=== PATIENT | female | born 1945 | race Caucasian/White ===

== ENCOUNTER 2016-11-04 17:08 | Emergency (ER) | payer MEDICARE, BC ==
[~2016-11-04] VITALS: Ht 162.6 cm; Wt 70.0 kg
[~2016-11-04 17:08] MED LIST: ASPIRIN ADULT L81 M2 PO; BACTRIM DS1 TAB PO; CALTRATE PO; DEXILANT60 MG PO; FLOVENT IN; FOLIC ACID1 MG PO; HYDROXYCHLOR200 M1 PO; LEVOTHYROXIN125 MCG PO; LIPITOR40 M1 PO; LOSARTAN POT50 MG PO; LYRICA100 MG PO; METRONIDAZOL500 MG PO; MULT VITAMI1 PO; NORCO1 TA1 PO; PREDNISONE10 MG PO; PROBIOTIC FORMU1 CAP PO; RECLAST5 MG/100 M IV; STOOL SOFTENER100 MG PO; SYNTHROID25 MCG PO; SYNTHROID50 MCG PO; TOVIAZ8 MG PO; TRAMADOL HCL50 MG PO; VITAMIN D1000 UNIT PO; VITAMIN E400 UNIT PO; VOLTAREN 1% TOP
[2016-11-04 17:38] LABS: HEMATOCRIT 34.5 % (37.0-47.0); HEMOGLOBIN 11.3 g/dl (12.0-16.0); IMMATURE GRANULOCYTES 0.4 % (0.0-1.0); MEAN CELL VOLUME 98.6 fL CALC (80.0-100.0); MEAN CORPUSCULAR HGB 32.3 pG CALC (26.0-32.0); MEAN CORPUSCULAR HGB CONC 32.8 g/L CALC (32.0-36.0); NEUT# 10.34 thou/uL (2.00-7.15); RED BLOOD COUNT 3.5 mill/uL (4.20-5.60); RED CELL DISTRI WIDTH 14.2 % (11.5-15.5)
[2016-11-04 17:49] LABS: ALBUMIN 4.3 g/dL (3.2-5.0); ALKALINE PHOSPHATASE 61 u/l (38-126); AMYLASE 31 u/l (30-110); ANION GAP 21 (6-22 (CALC)); BILIRUBIN, TOTAL 0.4 mg/dL (0.0-1.4); BUN 4 mg/dL (8-23); BUN/CREATININE RATIO 8 (12-20 (CALC)); CALCIUM 9.4 mg/dL (8.4-10.2); CARBON DIOXIDE 20 mmol/l (22-30); CHLORIDE 104 mmol/l (95-108); CREATININE 0.5 mg/dL (0.5-1.0); GFR > 60 ML/MIN (>=60 (CALC)); GFR FOR AFR.AMER. > 60 ML/MIN (>=60 (CALC)); GLUCOSE 88 mg/dL (82-115); LIPASE 81 u/l (23-300); POTASSIUM 3.4 mmol/l (3.5-5.1); SGOT/AST 48 u/l (9-36); SGPT/ALT 39 u/l (11-66); SODIUM 141 mmol/l (137-146); TOTAL PROTEIN 7.6 g/dL (6.3-8.2)
[2016-11-04] MEDS ORDERED: FLOVENT DI50 MCG/BLI IN (18:23)
[2016-11-04] MEDS ORDERED: VITAMIN D31000 UNI1 PO (18:29)
[2016-11-04 21:30] VITALS: BP 184/88
== END 2016-11-04 21:30 ==
LOC: ED 17:08
PROVIDERS: Emergency Medicine
DX: R10.31 Right lower quadrant pain (principal); R10.32 Left lower quadrant pain; K57.20 Diverticulitis of large intestine with perforation and abscess without bleeding; Z90.49 Acquired absence of other specified parts of digestive tract; R50.9 Fever, unspecified

== ENCOUNTER 2016-11-13 06:15 | Emergency (ER) | payer MEDICARE, BC ==
[~2016-11-13] VITALS: Ht 162.6 cm; Wt 70.9 kg
[~2016-11-13 06:15] MED LIST changes: +FLOVENT DI50 MCG/BLI IN; +VITAMIN D31000 UNI1 PO
[2016-11-13 07:02] LABS: HEMATOCRIT 41.3 % (37.0-47.0); HEMOGLOBIN 13.4 g/dl (12.0-16.0); IMMATURE GRANULOCYTES 0.4 % (0.0-1.0); MEAN CELL VOLUME 98.6 fL CALC (80.0-100.0); MEAN CORPUSCULAR HGB CONC 32.4 g/L CALC (32.0-36.0); NEUT# 3.34 thou/uL (2.00-7.15); RED BLOOD COUNT 4.19 mill/uL (4.20-5.60); RED CELL DISTRI WIDTH 14.7 % (11.5-15.5)
[2016-11-13 07:21] LABS: ALBUMIN 4.5 g/dL (3.2-5.0); ALKALINE PHOSPHATASE 52 u/l (38-126); AMYLASE 42 u/l (30-110); ANION GAP 21 (6-22 (CALC)); BILIRUBIN, TOTAL 0.4 mg/dL (0.0-1.4); BUN 10 mg/dL (8-23); BUN/CREATININE RATIO 18 (12-20 (CALC)); CALCIUM 9.8 mg/dL (8.4-10.2); CARBON DIOXIDE 24 mmol/l (22-30); CHLORIDE 107 mmol/l (95-108); CREATININE 0.5 mg/dL (0.5-1.0); GFR > 60 ML/MIN (>=60 (CALC)); GFR FOR AFR.AMER. > 60 ML/MIN (>=60 (CALC)); GLUCOSE 93 mg/dL (82-115); LIPASE 159 u/l (23-300); POTASSIUM 4.3 mmol/l (3.5-5.1); SGOT/AST 74 u/l (9-36); SGPT/ALT 57 u/l (11-66); SODIUM 148 mmol/l (137-146); TOTAL PROTEIN 7.7 g/dL (6.3-8.2)
[2016-11-13] MEDS ORDERED: MIRALAX3350 N1 PO (08:49)
[2016-11-13] MEDS ORDERED: COLACE100 MG PO (08:49)
[2016-11-13 09:41] LABS: URINE BILIRUBIN - DIPSTICK NEGATIVE (NEGATIVE); URINE BLOOD DIPSTICK NEGATIVE (NEGATIVE); URINE CLARITY CLEAR; URINE COLOR YELLOW; URINE GLUCOSE - DIPSTICK NEGATIVE (NEGATIVE); URINE KETONE NEGATIVE (NEGATIVE); URINE LEUK ESTERASE NEGATIVE (NEGATIVE); URINE NITRITE - DIPSTICK NEGATIVE (Negative); URINE PROTEIN - DIPSTICK NEGATIVE (NEG-TRACE); URINE UROBILINOGEN - DIPSTICK 0.2 E.U./dL (0.2)
[2016-11-13 10:59] VITALS: BP 161/78
--- NOTE | 2016-11-18 10:05 | NUR ---
ED CULTURE PHARMACY MEDICATION FOLLOW-UP Patient was seen in ED on 11/13/16 Cultures were reviewed from: Blood Patient was discharged with Rx for:N/A C&S report came back with No Growth PLAN: Recommended: No Change Comment: CONSTIPATION WITH ABDOMINAL PAIN
== END 2016-11-13 12:20 ==
LOC: ED 06:15 → ED-I 09:55 → ED 12:20
PROVIDERS: Emergency Medicine
DX: R10.32 Left lower quadrant pain (principal); K59.00 Constipation, unspecified; Z98.0 Intestinal bypass and anastomosis status

== ENCOUNTER 2017-02-14 17:41 | Emergency (ER) | payer MEDICARE, BC ==
[~2017-02-14] VITALS: Ht 162.6 cm; Wt 74.0 kg
[~2017-02-14 17:41] MED LIST changes: +COLACE100 MG PO; +MIRALAX3350 N1 PO
[2017-02-14] MEDS ORDERED: PERCOCET 5/325M1 TAB PO (20:12)
[2017-02-14 20:19] VITALS: BP 121/69
== END 2017-02-14 20:19 | disposition home or self-care (01) ==
LOC: ED 17:41
DX: S20.212A Contusion of left front wall of thorax, initial encounter (principal); S80.02XA Contusion of left knee, initial encounter; S40.012A Contusion of left shoulder, initial encounter; W01.0XXA Fall on same level from slipping, tripping and stumbling without subsequent striking against object, initial encounter; Y93.K1 Activity, walking an animal; Y92.009 Unspecified place in unspecified non-institutional (private) residence as the place of occurrence of the external cause

== ENCOUNTER 2017-07-17 13:35 | Emergency (ER) | payer MEDICARE, BC ==
[~2017-07-17] VITALS: Ht 162.6 cm; Wt 76.8 kg
[~2017-07-17 13:35] MED LIST changes: +PERCOCET 5/325M1 TAB PO
[2017-07-17 14:45] LABS: HEMATOCRIT 33.8 % (37.0-47.0); HEMOGLOBIN 11.1 g/dl (12.0-16.0); IMMATURE GRANULOCYTES 0.5 % (0.0-1.0); MEAN CORPUSCULAR HGB 31.5 pG CALC (26.0-32.0); MEAN CORPUSCULAR HGB CONC 32.8 g/L CALC (32.0-36.0); NEUT# 7.67 thou/uL (2.00-7.15); RED BLOOD COUNT 3.52 mill/uL (4.20-5.60); RED CELL DISTRI WIDTH 15.1 % (11.5-15.5)
[2017-07-17 15:03] LABS: ALBUMIN 4.6 g/dL (3.2-5.0); ALKALINE PHOSPHATASE 79 u/l (38-126); AMYLASE < 30 u/l (30-110); ANION GAP 19 (6-22 (CALC)); BILIRUBIN, TOTAL 0.8 mg/dL (0.0-1.4); BUN 9 mg/dL (8-23); BUN/CREATININE RATIO 17 (12-20 (CALC)); CARBON DIOXIDE 26 mmol/l (22-30); CHLORIDE 102 mmol/l (95-108); CREATININE 0.5 mg/dL (0.5-1.0); GFR > 60 ML/MIN (>=60 (CALC)); GFR FOR AFR.AMER. > 60 ML/MIN (>=60 (CALC)); GLUCOSE 134 mg/dL (82-115); LIPASE 43 u/l (23-300); POTASSIUM 3.7 mmol/l (3.5-5.1); SGOT/AST 33 u/l (9-36); SGPT/ALT 49 u/l (11-66); SODIUM 143 mmol/l (137-146); TOTAL PROTEIN 7.2 g/dL (6.3-8.2)
[2017-07-17 23:00] VITALS: BP 124/64
== END 2017-07-17 23:00 | disposition short-term general hospital (02) ==
LOC: ED 13:35
PROVIDERS: Emergency Medicine
DX: K56.609 Unspecified intestinal obstruction, unspecified as to partial versus complete obstruction (principal); K91.89 Other postprocedural complications and disorders of digestive system; Z98.0 Intestinal bypass and anastomosis status; R10.9 Unspecified abdominal pain; Z87.19 Personal history of other diseases of the digestive system; K59.00 Constipation, unspecified; R94.31 Abnormal electrocardiogram [ECG] [EKG]

== ENCOUNTER 2017-08-02 18:00 | Emergency (ER) | payer MEDICARE, BC ==
[~2017-08-02] VITALS: Ht 162.6 cm; Wt 76.4 kg
[2017-08-02 19:46] LABS: HEMATOCRIT 39.9 % (37.0-47.0); HEMOGLOBIN 13.1 g/dl (12.0-16.0); IMMATURE GRANULOCYTES 0.4 % (0.0-1.0); MEAN CELL VOLUME 96.6 fL CALC (80.0-100.0); MEAN CORPUSCULAR HGB 31.7 pG CALC (26.0-32.0); MEAN CORPUSCULAR HGB CONC 32.8 g/L CALC (32.0-36.0); NEUT# 10.15 thou/uL (2.00-7.15); RED BLOOD COUNT 4.13 mill/uL (4.20-5.60); RED CELL DISTRI WIDTH 15.4 % (11.5-15.5)
[2017-08-02 20:03] LABS: ALBUMIN 5.3 g/dL (3.2-5.0); ALKALINE PHOSPHATASE 69 u/l (38-126); AMYLASE 50 u/l (30-110); ANION GAP 21 (6-22 (CALC)); BILIRUBIN, TOTAL 0.9 mg/dL (0.0-1.4); BUN 13 mg/dL (8-23); BUN/CREATININE RATIO 23 (12-20 (CALC)); CALCIUM 10.8 mg/dL (8.4-10.2); CARBON DIOXIDE 23 mmol/l (22-30); CHLORIDE 103 mmol/l (95-108); CREATININE 0.5 mg/dL (0.5-1.0); GFR > 60 ML/MIN (>=60 (CALC)); GFR FOR AFR.AMER. > 60 ML/MIN (>=60 (CALC)); GLUCOSE 113 mg/dL (82-115); LIPASE 68 u/l (23-300); SGOT/AST 41 u/l (9-36); SGPT/ALT 43 u/l (11-66); SODIUM 143 mmol/l (137-146); TOTAL PROTEIN 8.2 g/dL (6.3-8.2)
[2017-08-02 20:33] LABS: URINE BILIRUBIN - DIPSTICK NEGATIVE (NEGATIVE); URINE BLOOD DIPSTICK NEGATIVE (NEGATIVE); URINE COLOR YELLOW; URINE GLUCOSE - DIPSTICK NEGATIVE (NEGATIVE); URINE KETONE NEGATIVE (NEGATIVE); URINE LEUK ESTERASE NEGATIVE (NEGATIVE); URINE NITRITE - DIPSTICK NEGATIVE (Negative); URINE PROTEIN - DIPSTICK NEGATIVE (NEG-TRACE); URINE SPECIFIC GRAVITY 1.025; URINE UROBILINOGEN - DIPSTICK 0.2 E.U./dL (0.2)
[2017-08-02 20:49] LABS: URINE CLARITY CLEAR
[2017-08-03 00:02] VITALS: BP 175/88
== END 2017-08-03 00:16 | disposition home or self-care (01) ==
LOC: ED 18:00 → ED-I 22:04 → ED 08-03 00:16
PROVIDERS: Emergency Medicine
DX: R10.32 Left lower quadrant pain (principal); R10.31 Right lower quadrant pain; K59.00 Constipation, unspecified; Z98.0 Intestinal bypass and anastomosis status; R11.2 Nausea with vomiting, unspecified
CPT/HCPCS: Q9967

== ENCOUNTER 2017-09-17 13:49 | Emergency (ER) | payer MEDICARE, BC ==
[~2017-09-17] VITALS: Ht 162.6 cm; Wt 76.4 kg
[2017-09-17] MEDS ORDERED: MOTRIN400 MG PO (15:11)
[2017-09-17] MEDS ORDERED: HYDROCO/APAP1 TA9 PO (15:11)
[2017-09-17 15:23] VITALS: BP 123/53
== END 2017-09-17 15:44 | disposition home or self-care (01) ==
LOC: ED 13:49
PROC: 2W3CX1Z Immobilization of Right Lower Arm using Splint (ICD-10-PCS; principal; 2017-09-17)
DX: S52.501A Unspecified fracture of the lower end of right radius, initial encounter for closed fracture (principal); W01.0XXA Fall on same level from slipping, tripping and stumbling without subsequent striking against object, initial encounter; Y93.9 Activity, unspecified; Y92.009 Unspecified place in unspecified non-institutional (private) residence as the place of occurrence of the external cause; M25.531 Pain in right wrist; I10 Essential (primary) hypertension

== ENCOUNTER 2018-09-02 06:57 | Day surgery (SDC) | payer MEDICARE, BC ==
[~2018-09-02] VITALS: Ht 162.6 cm; Wt 77.6 kg
[~2018-09-02 06:57] MED LIST changes: +B1 HIGH POTENC100 MG; +HYDROCO/APAP1 TA9 PO; +MONTELUKAST SOD10 MG PO; +MOTRIN400 MG PO
[2018-09-02 09:48] VITALS: BP 179/85
[2018-09-02] MEDS ORDERED: CARAFATE1 GM PO (09:58)
== END 2018-09-02 10:00 | disposition home or self-care (01) ==
LOC: ORM 06:57
PROVIDERS: ATTEND Surgery
PROC: 0DJ08ZZ Inspection of Upper Intestinal Tract, Via Natural or Artificial Opening Endoscopic (ICD-10-PCS; principal; 2018-09-02)
DX: K21.0 Gastro-esophageal reflux disease with esophagitis (principal); K29.40 Chronic atrophic gastritis without bleeding; I10 Essential (primary) hypertension; E78.5 Hyperlipidemia, unspecified; M06.9 Rheumatoid arthritis, unspecified

== ENCOUNTER → 2018-09-04 | Outpatient (REF) | payer MEDICARE, BC ==
[~2018-09-04] MED LIST changes: +CARAFATE1 GM PO
[2018-09-04 09:06] LABS: HEMATOCRIT 36.6 % (37.0-47.0); HEMOGLOBIN 11.8 g/dl (12.0-16.0); IMMATURE GRANULOCYTES 0.6 % (0.0-5.0); MEAN CELL VOLUME 103.4 fL CALC (80.0-100.0); MEAN CORPUSCULAR HGB 33.3 pG CALC (26.0-32.0); MEAN CORPUSCULAR HGB CONC 32.2 g/L CALC (32.0-36.0); NEUT# 4.06 thou/uL (2.00-7.15); RED BLOOD COUNT 3.54 mill/uL (4.20-5.60); RED CELL DISTRI WIDTH 14.4 % (11.5-15.5)
[2018-09-04 09:16] LABS: ALBUMIN 4.3 g/dL (3.2-5.0); ALKALINE PHOSPHATASE 52 u/l (38-126); ANION GAP 15 (6-22 (CALC)); BILIRUBIN, TOTAL 0.7 mg/dL (0.0-1.4); BUN 10 mg/dL (8-23); BUN/CREATININE RATIO 19 (12-20 (CALC)); CALCULATED LDLCHOLESTEROL 64 mg/dL (62-129 (CALC)); CARBON DIOXIDE 26 mmol/l (22-30); CHLORIDE 106 mmol/l (95-108); CHOLESTEROL HDL RATIO 2.2 (<4.4 (CALC)); CREATININE 0.5 mg/dL (0.5-1.0); GFR > 60 ML/MIN (>=60 (CALC)); GFR FOR AFR.AMER. > 60 ML/MIN (>=60 (CALC)); HDL CHOLESTEROL 67 mg/dL (>=40); SODIUM 143 mmol/l (137-146); TOTAL CHOLESTEROL 149 mg/dl (0-199); TOTAL PROTEIN 6.7 g/dL (6.3-8.2); TOTAL TRIGLYCERIDES 89 mg/dl (30-149); VLDL CHOLESTROL 18 mg/dl (0-48 (CALC))
[2018-09-04 09:24] LABS: SGOT/AST 109 u/l (9-36)
[2018-09-04 09:43] LABS: TSH, 3RD GENERATION 4.14 uIU/mL (0.47 - 4.68)
== END | disposition home or self-care (01) ==
LOC: LAB 08:25
PROVIDERS: ATTEND Internal Medicine
DX: E78.49 Other hyperlipidemia (principal)

== ENCOUNTER → 2018-09-16 | Outpatient (REF) | payer MEDICARE, BC | END | disposition home or self-care (01) | LOC: ULTRASND 10:37 | PROVIDERS: ATTEND Nurse Practitioner Family | DX: R14.0 Abdominal distension (gaseous) (principal); R79.89 Other specified abnormal findings of blood chemistry ==

== ENCOUNTER 2020-04-09 14:40 | Emergency (ER) | payer MEDICARE, BC ==
[~2020-04-09] VITALS: Ht 162.6 cm; Wt 77.3 kg
[2020-04-09] MEDS ORDERED: ALLEGRA180 MG PO (15:21)
[2020-04-09] MEDS ORDERED: PEPCID20 MG PO (15:21)
[2020-04-09 15:40] VITALS: BP 162/68
== END 2020-04-09 15:40 | disposition home or self-care (01) ==
LOC: ED 14:40
DX: T78.40XA Allergy, unspecified, initial encounter (principal); I10 Essential (primary) hypertension; X58.XXXA Exposure to other specified factors, initial encounter

== ENCOUNTER 2020-10-13 17:03 | Emergency (ER) | payer MEDICARE, BC ==
[~2020-10-13] VITALS: Ht 162.6 cm; Wt 70.9 kg
[~2020-10-13 17:03] MED LIST changes: +ALLEGRA180 MG PO; +PEPCID20 MG PO
[2020-10-13 18:32] LABS: GFR > 60 ML/MIN (>=60 (CALC)); GFR FOR AFR.AMER. > 60 ML/MIN (>=60 (CALC))
[2020-10-13 18:34] LABS: HEMATOCRIT 38.3 % (37.0-47.0); HEMOGLOBIN 12.1 g/dl (12.0-16.0); IMMATURE GRANULOCYTES 0.3 % (0.0-5.0); MEAN CELL VOLUME 101.3 fL CALC (80.0-100.0); MEAN CORPUSCULAR HGB CONC 31.6 g/dL CAL (32.0-36.0); NEUT# 4.52 thou/uL (2.00-7.15); RED BLOOD COUNT 3.78 mill/uL (4.20-5.60); RED CELL DISTRI WIDTH 15.9 % (11.5-15.5)
[2020-10-13 18:51] LABS: ALBUMIN 5.2 g/dL (3.2-5.0); ALKALINE PHOSPHATASE 49 u/l (38-126); ANION GAP 14 (6-22 (CALC)); BILIRUBIN, TOTAL 0.9 mg/dL (0.0-1.4); BUN 12 mg/dL (8-23); BUN/CREATININE RATIO 26 (12-20 (CALC)); CARBON DIOXIDE 25 mmol/l (22-30); CHLORIDE 105 mmol/l (95-108); CREATININE 0.5 mg/dL (0.5-1.0); GFR > 60 ML/MIN (>=60 (CALC)); GFR FOR AFR.AMER. > 60 ML/MIN (>=60 (CALC)); LIPASE 113 u/l (23-300); POTASSIUM 3.3 mmol/l (3.5-5.1); SGOT/AST 45 u/l (9-36); SODIUM 140 mmol/l (137-146); TOTAL PROTEIN 8.4 g/dL (6.3-8.2)
[2020-10-13 21:06] VITALS: BP 156/67
== END 2020-10-13 21:04 | disposition home or self-care (01) ==
LOC: ED 17:03
PROVIDERS: Family Medicine
DX: S00.12XA Contusion of left eyelid and periocular area, initial encounter (principal); S00.11XA Contusion of right eyelid and periocular area, initial encounter; R51.9 Headache, unspecified; M54.2 Cervicalgia; R07.81 Pleurodynia; M54.6 Pain in thoracic spine; M25.512 Pain in left shoulder; M25.511 Pain in right shoulder; I10 Essential (primary) hypertension; E78.5 Hyperlipidemia, unspecified; Z79.82 Long term (current) use of aspirin; W10.9XXA Fall (on) (from) unspecified stairs and steps, initial encounter; Y92.009 Unspecified place in unspecified non-institutional (private) residence as the place of occurrence of the external cause

== ENCOUNTER 2020-12-08 02:18 | Emergency (ER) | payer MEDICARE, BC ==
[~2020-12-08] VITALS: Ht 162.6 cm; Wt 74.5 kg
[2020-12-08 03:02] LABS: HEMOGLOBIN 13.3 g/dl (12.0-16.0); IMMATURE GRANULOCYTES 0.9 % (0.0-5.0); MEAN CELL VOLUME 101.9 fL CALC (80.0-100.0); MEAN CORPUSCULAR HGB 32.3 pG CALC (26.0-32.0); MEAN CORPUSCULAR HGB CONC 31.7 g/dL CAL (32.0-36.0); NEUT# 14.4 thou/uL (2.00-7.15); RED BLOOD COUNT 4.12 mill/uL (4.20-5.60); RED CELL DISTRI WIDTH 15.3 % (11.5-15.5)
[2020-12-08 03:16] LABS: ALKALINE PHOSPHATASE 53 u/l (38-126); ANION GAP 18 (6-22 (CALC)); BILIRUBIN, TOTAL 0.6 mg/dL (0.0-1.4); BUN 18 mg/dL (8-23); BUN/CREATININE RATIO 35 (12-20 (CALC)); CARBON DIOXIDE 29 mmol/l (22-30); CHLORIDE 101 mmol/l (95-108); CPK 189 u/l (30-165); CREATININE 0.5 mg/dL (0.5-1.0); ETHYL ALCOHOL 229 mg/dl (0-30); GFR > 60 ML/MIN (>=60 (CALC)); GFR FOR AFR.AMER. > 60 ML/MIN (>=60 (CALC)); MAGNESIUM 2.1 mg/dL (1.6-2.3); POTASSIUM 3.8 mmol/l (3.5-5.1); SODIUM 144 mmol/l (137-146); TOTAL PROTEIN 8.4 g/dL (6.3-8.2)
[2020-12-08 03:18] LABS: SGOT/AST 82 u/l (9-36)
[2020-12-08 03:25] LABS: MYOGLOBIN 105 ng/mL (0 - 62)
[2020-12-08 04:04] LABS: URINE BILIRUBIN - DIPSTICK NEGATIVE (NEGATIVE); URINE BLOOD DIPSTICK TRACE-INTACT (NEGATIVE); URINE COLOR YELLOW; URINE GLUCOSE - DIPSTICK NEGATIVE (NEGATIVE); URINE KETONE NEGATIVE (NEGATIVE); URINE LEUK ESTERASE NEGATIVE (NEGATIVE); URINE PROTEIN - DIPSTICK NEGATIVE (NEG-TRACE); URINE SPECIFIC GRAVITY 1.015; URINE UROBILINOGEN - DIPSTICK 0.2 E.U./dL (0.2)
[2020-12-08 04:09] LABS: URINE NITRITE - DIPSTICK NEGATIVE (Negative)
[2020-12-08] MEDS ORDERED: TRAMADOL HCL50 MG PO (04:27)
[2020-12-08 04:34] VITALS: BP 115/63
== END 2020-12-08 04:43 | disposition home or self-care (01) ==
LOC: ED 02:18
PROVIDERS: Family Medicine
DX: M47.816 Spondylosis without myelopathy or radiculopathy, lumbar region (principal); F10.229 Alcohol dependence with intoxication, unspecified; I10 Essential (primary) hypertension; E78.5 Hyperlipidemia, unspecified